=== PATIENT | male | born 1955 | race Hispanic/Latino ===

== ENCOUNTER 2019-12-30 07:25 | Day surgery (SDC) | payer MEDICARE ==
[2019-12-24 13:24] LABS: APPEARANCE,URINE CLOUDY (CLEAR); BILIRUBIN,URINE NEGATIVE (NEGATIVE); COLOR,URINE YELLOW (YELLOW); GLUCOSE, URINE (UA) NEGATIVE (NEGATIVE); KETONES,URINE NEGATIVE (NEGATIVE); LEUKOCYTE ESTERASE ,URINE LARGE (NEGATIVE); NITRATE,URINE POSITIVE (NEGATIVE); OCCULT BLOOD,URINE LARGE (NEGATIVE); PH,URINE >=9.0 (5.0-8.0); PROTEIN,URINE TRACE mg/dL (NEGATIVE); UROBILINOGEN,URINE 0.2 mg/dL (0.2-1.0)
[2019-12-24 14:15] LABS: AMORPHOUS SEDIMENT,UR Few /LPF (None Seen); BACTERIA,URINE Many /HPF (None Seen); SQUAMOUS EPITHELIAL CELL,UR 0-2 /HPF (0-2)
[2019-12-24 15:18] LABS: BASOPHILS % (AUTO) 0.9 % (0.0-5.0); EOSINOPHILS % (AUTO) 2.5 % (0.0-8.0); HEMATOCRIT 50.7 % (42-54); LYMPHOCYTES % (AUTO) 20.1 % (21.0-51.0); MEAN CORPUSCULAR HEMOGLOBIN 30.7 pg (27.0-33.0); MEAN CORPUSCULAR HGB CONC 33.5 g/dL (32.0-36.0); MEAN CORPUSCULAR VOLUME 91.5 fL (79-99); MONOCYTES % (AUTO) 8.3 % (3.0-13.0); NEUTROPHILS % (AUTO) 67.8 % (40.0-77.0); PLATELET COUNT (AUTO) 249 K/uL (130-400); RED BLOOD CELL COUNT(AUTO) 5.54 MIL/uL (4.50-6.20); RED CELL DISTRIBUTION WIDTH 12.9 % (11.0-15.5); WHITE BLOOD COUNT (AUTO) 9.3 K/uL (4.8-10.8)
[2019-12-24 15:31] LABS: CREATININE 0.8 mg/dL (0.5-1.5); POTASSIUM 4.3 mmol/L (3.5-5.1)
[2019-12-24 15:46] LABS: INR 0.96 (0.85-1.15); PARTIAL THROMBOPLASTIN TIME 29.6 SEC (26.3-35.5); PROTHROMBIN TIME 10.4 SEC (9.6-11.6)
[2019-12-29] MEDS: CEFTRIAXONE SODIUM 1 GM IVP SCH (07:00)
[2019-12-29 09:48] VITALS: BP 148/92
--- NOTE | 2019-12-29 16:11 | NUR ---
LYNNE BELLO ON PHONEW. PER DR. DUKE, PT IS ALREADY TAKING LEVOFLOXACIN.
[2019-12-30] VITALS (18 sets, daily range): BP systolic 129–187; BP diastolic 80–97
[~2019-12-30] VITALS: Ht 165.1 cm; Wt 67.6 kg
[~2019-12-30 07:25] MED LIST: LEVO500T89 PO
--- NOTE | 2019-12-30 08:00 | NUR ---
ADVISED PETER JONES PT HAVING WHEEZING ON UPPER LOBES ---NO INHALER --NO PULMONDARY MEDICATIONS OR DX---DAILY CIGARETTE SMOKER ORDERED DUONEB RESP NOTIFIED
[2019-12-30] MEDS ORDERED: GENTAMICIN SULFATE IV SCH (08:15)
[2019-12-30] MEDS ORDERED: SODIUM CHLORIDE 0.9% IV SCH (08:15)
[2019-12-30] MEDS ORDERED: IPRATROPIUM/ALBUTEROL SULFATE 3 ML SOLUTION IH ONE (09:01)
[2019-12-30] MEDS ORDERED: LIDOCAINE PF 2% 5ML ABBOJECT ONE (10:54)
[2019-12-30] MEDS ORDERED: SUCCINYLCHOLINE 200MG/10ML SYR ONE (10:54)
[2019-12-30] MEDS ORDERED: PROPOFOL 10 MG/ML 20ML VIAL IV ONE (10:54)
[2019-12-30] MEDS ORDERED: FENTANYL CITRATE PF 50 MCG/1 ML 2ML VIAL ONE ×2 (10:56→11:56)
[2019-12-30] MEDS: CEFTRIAXONE SODIUM 1 GM IVP SCH (11:00)
[2019-12-30] MEDS ORDERED: ROCURONIUM 10MG/1ML SYR 10 MG/ML ML ONE (11:25)
[2019-12-30] MEDS ORDERED: ONDANSETRON HCL 4 MG/2 ML VIAL ONE (11:47)
[2019-12-30] MEDS ORDERED: GLYCOPYRROLATE 1 MG/5 ML SYRINGE ONE (11:47)
[2019-12-30] MEDS ORDERED: NEOSTIGMINE 5MG/5ML SYR IV ONE (11:53)
[2019-12-30] MEDS ORDERED: MEPERIDINE-PF 25 MG/ML SYG ONE ×2 (13:00→13:09)
--- NOTE | 2019-12-30 14:20 | NUR ---
IRRIGATION ANN DRAINING CLEAR URINE. IRRIGATION STOPPED.
--- NOTE | 2019-12-30 14:49 | NUR ---
DISCHARGE DISCHARGE INSTRUCTIONS REVIEWED WITH GERALD/DAUGHTER INCLUDING PT SUMMARY, DAY PATIENT DISCHARGE INSTRUCTIONS, AND MED REC. SHE VERBALIZED UNDERSTANDING. OPPORTUNITY GIVEN TO ASK QUESTIONS. QUESTIONS ADDRESSED.
--- NOTE | 2019-12-30 15:07 | NUR ---
EDUCATION OSKAR, SISTER SHOWN HOW TO SWITCH FROM BSD BAG TO LEG BAG. VERBALIZED UNDERSTANDING. PT FAMILIAR WITH SWITCHING HAS HAD SETH FOR 3 WEEKS.
--- NOTE | 2019-12-30 15:15 | NUR ---
REPORT REPORT GIVEN TO SANJAY PIZARRO USING SBAR. VERBALIZED UNDERSTANDING. PT REMAINS DROWSY. HOB ELEVATED.
== END 2019-12-30 15:45 | disposition home or self-care (01) ==
LOC: DAH 07:25
PROVIDERS: ATTEND Urology
DX: N40.1 Benign prostatic hyperplasia with lower urinary tract symptoms (principal); R33.9 Retention of urine, unspecified; Z20.828 Contact with and (suspected) exposure to other viral communicable diseases; Z79.01 Long term (current) use of anticoagulants; F17.200 Nicotine dependence, unspecified, uncomplicated; Z79.899 Other long term (current) drug therapy
CPT/HCPCS: 36415; 52648; 71045; 80048; 81001; 85025; 85610; 85730; 87077; 87088; 87186; 93005; 94640; A4215; A4221; A4222; A4223; A4354; A4358; A4663; C1758; C9803; J0330; J0696; J1580; J2001; J2175 ×2; J2405; J2704; J2710; J3010 ×2; J3490; J7030; U0003